=== PATIENT | female | born 1975 | race Caucasian/White ===

== ENCOUNTER 2019-11-01 09:22 | Day surgery (SDC) | payer OTHER ==
[~2019-11-01] VITALS: Ht 175.3 cm; Wt 71.0 kg
[2019-11-01 10:30] VITALS: BP 147/78
[2019-11-01] MEDS ORDERED: CHLORHEXIDINE 15 ML UDC MM ONE (10:30)
[2019-11-01] MEDS ORDERED: LACTATED RINGERS 1,000 ML IV SCH (10:35)
[2019-11-01] MEDS ORDERED: CHLORHEXIDINE 15 ML UDC ONE (10:39)
[2019-11-01] MEDS ORDERED: CLIN150C14 PO (10:58)
[2019-11-01] MEDS ORDERED: RIFA300C3 PO (10:58)
[2019-11-01] MEDS ORDERED: CYCL-259 PO (10:58)
[2019-11-01] MEDS ORDERED: MIDAZOLAM 1 MG/ML, 2ML ONE (11:12)
[2019-11-01] MEDS ORDERED: FENTANYL PF 100 MCG/2ML ONE ×2 (11:12→12:42)
[2019-11-01] MEDS ORDERED: PROPOFOL 10 MG/ML, 20ML ONE (11:14)
[2019-11-01] MEDS ORDERED: LIDOCAINE-MPF 2% ,5ML ONE (11:14)
[2019-11-01] MEDS ORDERED: CEFAZOLIN 1,000 MG ONE (12:09)
[2019-11-01] MEDS ORDERED: ONDANSETRON 2MG/ML, 2ML ONE (12:09)
[2019-11-01] MEDS ORDERED: DEXAMETHASONE 4 MG/ML, 1ML ONE (12:09)
[2019-11-01] MEDS ORDERED: IBUPROFEN 600 MG TABLET PO PRN (13:30)
[2019-11-01] MEDS ORDERED: OXYcodone 5 MG/5 ML ORAL.SOL UDC PO PRN (13:30)
== END 2019-11-01 15:10 | disposition home or self-care (01) ==
LOC: OUT 09:22
PROVIDERS: ATTEND Surgery
DX: L02.416 Cutaneous abscess of left lower limb (principal); Z11.59 Encounter for screening for other viral diseases; M79.3 Panniculitis, unspecified; F17.210 Nicotine dependence, cigarettes, uncomplicated; Z90.710 Acquired absence of both cervix and uterus; Z98.890 Other specified postprocedural states; Z79.899 Other long term (current) drug therapy; Z79.2 Long term (current) use of antibiotics; Z88.5 Allergy status to narcotic agent; Z88.8 Allergy status to other drugs, medicaments and biological substances; Z88.0 Allergy status to penicillin; Z88.2 Allergy status to sulfonamides; Z88.1 Allergy status to other antibiotic agents; Z82.49 Family history of ischemic heart disease and other diseases of the circulatory system; Z83.3 Family history of diabetes mellitus; R22.9 Localized swelling, mass and lump, unspecified; Z72.89 Other problems related to lifestyle
CPT/HCPCS: 11406; 87070; 87075; 87102; 87205; 87635; 88305; J0690; J1100; J2250; J2405; J2704; J3010; J7120